=== PATIENT | female | born 1960 | race Two or more races ===

== ENCOUNTER 2022-09-04 08:44 | Inpatient (IN) | payer OTHER ==
[~2022-09-04] VITALS: Ht 162.6 cm; Wt 69.9 kg
[2022-09-04] MEDS ORDERED: ZESTRIL10 M1 PO ×2 (09:15)
[2022-09-04] MEDS ORDERED: SYNTHROID75 MCG PO (09:15)
[2022-09-09] MEDS ORDERED: FAMOTIDINE40 MG (08:00)
[2022-09-09] MEDS ORDERED: OMEPRAZOLE20 MG (08:01)
[2022-09-11] MEDS ORDERED: BACTRIM DS TAB1 EACH PO (08:30)
[2022-09-11] MEDS ORDERED: INTEGRA PLUS C1 EACH PO (08:30)
[2022-09-11] MEDS ORDERED: OXYC1TAB9 PO (08:30)
[2022-09-11] MEDS ORDERED: XARELTO10 MG PO (08:30)
== END 2022-09-11 12:12 | DRG 470 ==
LOC: O/R 09-09 04:44 → SURH 09-09 04:44
PROVIDERS: ADMIT Orthopaedic Surgery Sports Medicine; ATTEND Orthopaedic Surgery Sports Medicine
PROC: 3E0F7SF Introduction of Other Gas into Respiratory Tract, Via Natural or Artificial Opening (ICD-10-PCS; 2022-09-09)
PROC: 0SRC0J9 Replacement of Right Knee Joint with Synthetic Substitute, Cemented, Open Approach (ICD-10-PCS; principal; 2022-09-09 07:00)
DX: M17.11 Unilateral primary osteoarthritis, right knee (principal); E03.9 Hypothyroidism, unspecified; I10 Essential (primary) hypertension